=== PATIENT | male | born 1970 | race Two or more races ===

== ENCOUNTER 2024-12-04 10:55 | Emergency (ER) | payer MEDICAID, SELFPAY ==
--- NOTE | 2024-12-04 11:28 | PD.EDCHEST ---
ED Chest Pain RME/HPI General Chief Complaint: Chest Pain Stated Complaint: BACK AND CHEST PAIN Time Seen by Provider: 12/04/24 11:00 Source: patient and family Arrival date/time: 12/04/24 10:55 Mode of arrival: ambulatory Limitations: no limitations RME / HPI RME / HPI narrative: Dr. Grimes? Main ED Evaluation: 54-year-old male patient with a history of congestive heart failure, diabetes mellitus, hypertension, and a pacemaker, presenting to the emergency department with complaints of chest pain accompanied by back pain. The patient reports that his symptoms began last night when he developed chest pain and checked his blood sugar, which was reportedly 500 mg/dL. He took nitroglycerin, which provided partial relief of the chest pain but did not fully resolve it. He went to bed, but upon waking at 7:30 AM today, he experienced constant, persistent chest pain. The pain was associated with radiation down his right arm, which lasted for about five minutes before resolving. Since this morning, he has noted increasing shortness of breath, nausea, and vomiting. He has not eaten today but has consumed coffee. He also reports that he has run out of Carvedilol. His social history includes a prior qte-spoa-kig-day tobacco use history, though he no longer smokes. He occasionally smokes marijuana but denies any illicit drug use. He also reports a family history of cardiac disorders. 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 PCP: [facility] Related Data Home Medications ?Medication ?Instructions ?Recorded ?Confirmed aspirin 81 mg tablet,delayed 81 mg PO QDAY 06/21/20 04/16/24 release duloxetine 60 mg capsule,delayed 60 mg PO QDAY 06/21/20 01/22/24 release insulin glargine 100 unit/mL (3 80 unit subcut 1XD 06/21/20 01/22/24 mL) subcutaneous pen (Basaglar KwikPen U-100 Insulin) lovastatin 40 mg tablet 40 mg PO QPM 06/21/20 04/16/24 empagliflozin 10 mg tablet 10 mg PO QDAY 04/05/21 01/22/24 (Jardiance) carvedilol 3.125 mg tablet 3.125 mg PO BID 09/04/22 04/16/24 insulin lispro 100 unit/mL See Rx Instructions .Route .COMPLEX 09/04/22 01/22/24 subcutaneous pen (Humalog KwikPen (U-100) Insulin) loratadine 10 mg tablet 10 mg PO QDAY 09/04/22 01/22/24 albuterol sulfate 90 mcg/actuation 90 mcg inhalation PRN PRN Adequate 01/22/24 01/22/24 aerosol inhaler Ventilation digoxin 125 mcg (0.125 mg) tablet 125 mcg PO 1XD 01/22/24 04/16/24 fluticasone furoate 200 200 mcg inhalation PRN PRN 01/22/24 01/22/24 mcg/actuation blister powder for Adequate Ventilation inhalation (Arnuity Ellipta) glimepiride 1 mg tablet 1 mg PO USEASDIRECTD 01/22/24 01/22/24 ibuprofen 600 mg tablet 600 mg PO Q6HR 01/22/24 01/22/24 metformin 1,000 mg tablet 1,000 mg PO 2XD 01/22/24 01/22/24 montelukast 10 mg tablet 10 mg PO QPM 01/22/24 01/22/24 nitroglycerin 0.4 mg sublingual 0.4 mg buccal [id number] PRN Chest 01/22/24 01/22/24 tablet Pain tramadol 50 mg tablet 100 mg PO 4XD 01/22/24 01/22/24 Previous Rx's ?Medication ?Instructions ?Recorded ascorbic acid (vitamin C) 250 mg 500 mg (2 x 250 mg) PO BID #30 tabs 01/25/24 tablet (Vitamin C) multivitamin with folic acid 400 1 tab PO QDAY #30 tabs 01/25/24 mcg tablet (Tab-A-Kitty) zinc sulfate 50 mg zinc (220 mg) 220 mg (4.4 x 50 mg zinc (220 mg)) 01/25/24 capsule PO QDAY #30 caps carvedilol 3.125 mg tablet 3.125 mg PO BID #60 tabs 12/04/24 Allergies Allergy/AdvReac Type Severity Reaction Status Date / Time cephalexin Allergy Severe Agitated Verified 12/04/24 10:57 promethazine Allergy Severe Agitated Verified 12/04/24 10:57 Review of Systems Review of Systems Systems Reviewed: All systems reviewed, normal except as documented Past Medical History Past Medical History NEUROLOGIC: Positive Neurological Disorders and Peripheral Neuropathy; Negative Seizures CARDIAC: Positive Cardiac Disorders, Atherosclerotic Heart Disease, Hypercholesterolemia, Congestive Heart Failure and Hypertension RESPIRATORY: Positive Asthma; Negative Chronic Obstructive Pulmonary Disease (COPD) GASTROINTESTINAL: Negative Gastrointestinal Disorders GENITOURINARY: Negative Genitourinary Disorders or Renal Disease MUSCULOSKELETAL: Negative Musculoskeletal Disorders ENDOCRINE: Positive Endocrine Disorders, Diabetes Mellitus Type 1 and Diabetes Mellitus Type 2 HEMATOLOGIC: Negative Blood Disorders or Sickle Cell Disease OTHER HISTORY: Positive Hospitalization, Falls and Chicken Pox; Negative Autoimmune Disease, Down Syndrome, Developmental Delay, Blood Transfusions, Blood Transfusion Reaction, Anesthesia Reactions, Measles, Mumps or Cancer Family History FAMILY HISTORY: Positive Family Cancer; Negative Family Neurologic Problems, Family Respiratory Disorders, Family Cardiac Disorders, Family Gastrointestinal Problems or Family Surgery Surgical History SURGICAL: Positive Pacemaker Social History SMOKING STATUS: Former smoker SECOND HAND EXPOSURE: Yes SUBSTANCE USE: does not use ED Exam General Limitations: Present no limitations General appearance: Present alert and in no apparent distress Head Head exam: Present atraumatic Eye Eye exam: Present normal appearance, PERRL and EOMI ENT ENT exam: Present normal exam, normal oropharynx and mucous membranes moist Neck Neck exam: Present normal inspection, full ROM and trachea midline Chest Chest inspection: Present normal inspection and symmetric chest wall rise Respiratory Respiratory exam: Present normal lung sounds bilaterally Cardiovascular Cardiovascular exam: Present regular rate, normal rhythm and normal heart sounds Abdominal Exam Abdominal exam: Present soft and normal bowel sounds Extremities Exam Extremities exam: Present normal inspection and full ROM Back Exam Back exam: Present normal inspection and full ROM Neurological Exam Neurological exam: Present alert, oriented X3 and CN II-XII intact Psychiatric Psychiatric exam: Present normal affect and normal mood Skin Skin exam: Present warm, dry, intact and normal color Course Course Course Narrative: CXR is ordered for determining etiology of chest pain. 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 Care 12/04/24 11:54 Completed Continuous Pulse Oximetry STAT Care 12/04/24 11:54 Completed EKG (ED ONLY) *Do not use* NOW Care 12/04/24 11:54 Completed Insert IV NOW Care 12/04/24 11:54 Completed NPO STAT Care 12/04/24 11:54 Completed Strict Intake and Output Routine Care 12/04/24 11:54 Ordered EKG (ED Only) Stat Exams 12/04/24 11:54 Draft XR chest 2V Stat Exams 12/04/24 11:54 Completed B-Type Natriuretic Peptide Stat Lab 12/04/24 12:04 Completed CBC Stat Lab 12/04/24 12:04 Completed Comprehensive Metabolic Panel Stat Lab 12/04/24 12:04 Completed Lactate (Lactic Acid) Stat Lab 12/04/24 12:04 Completed Magnesium Stat Lab 12/04/24 12:04 Completed Partial Thromboplastin Time Stat Lab 12/04/24 12:04 Completed Phosphorous Stat Lab 12/04/24 12:04 Completed Prothrombin Time with INR Stat Lab 12/04/24 12:04 Completed Troponin I Stat Lab 12/04/24 12:04 Completed Troponin I Stat Lab 12/04/24 15:20 Completed Vital Signs Vital signs: Vital Signs Temperature 98.2 F 12/04/24 11:48 Pulse Rate 102 H 12/04/24 11:48 Respiratory Rate 18 12/04/24 11:48 Blood Pressure 145/88 H 12/04/24 11:48 Pulse Oximetry (%) 96 12/04/24 11:48 Oxygen Delivery Method Room Air 12/04/24 11:48 Procedures -ED EKG Interpretation #1: Date of EK12/04/24 Time of EK:57 Rate: 101 Interpretation: Interpreted by me Additional EKG comment: 100% paced rhythm, rate 101, no significant changes Chest Pain MDM Narrative MDM Narrative:: Both troponins are negative. Scribe Attestation: Leonid Dc am scribing for and in the presence of Dr. Grimes. Provider Notation: Although this document has been carefully reviewed, there may still be some phonetic and other typographical errors. These errors are purely grammatical due to imperfections in the software program and should not be construed in any way to compromise the substance of the patient's medical care during this visit. Patient data External records reviewed:: [facility] previous records Clinical information provided by:: patient Social determinants that could affect healthcare access:: none Patient has the following chronic illnesses:: see PMH How is presenting disease/condition affected by chronic disease/condition?: uneffected by Evaluation data The following diagnostics were reviewed and interpreted by me:: lab results, radiology exam(s) and EKG tracing(s) Lab and/or radiology exams considered but not ordered:: na Interpretation Summary: Procedure(s): XR chest 2V Accession Number(s): [id number] cc: Rod Grimes MD; Chicho Ulloa MD~ Exam: Chest PA, lateral 2 views Technique: Chest upright PA lateral 2 views Date and time of exam: 12/04/2024, 12:08 PM INDICATION: Chest pain COMPARISON: 09/15/2022 Findings: Normal heart size. No mediastinal adenopathy. No acute fracture No pulmonary edema or pneumonia. Stable left-sided dual lead pacing device Impression: No active disease. Dictated By: Chicho Ulloa MD Medications / Prescriptions Medications or Prescriptions considered but not ordered:: na Medication administrations:: as above, if any Consultations Consultation(s) initiated? (list below): No Diagnosis Chest Pain Differential Diagnosis: stable angina, atypical chest pain, costochondritis and chest pain Most likely diagnosis given after review of the tests above:: Dyspnea, Chest Pain Admission Indicated Admission indicated?: not indicated Admission Request Was there a request for admission?: No Disposition Plan Disposition Plan: Discharge Discharge Attestation Discharge Attestation: The patient and all family members were given an opportunity to ask questions and understood the discharge instructions. Discharge instructions specifically effects, indications for sooner follow up or return to the emergency department, and the expected course of current diagnosis. Patient condition: Stable Discharge Plan Plan Patient Disposition: HOME (Self Care) Patient condition on transfer: Stable Prescriptions/Referrals Prescriptions/Med Rec: New carvedilol 3.125 mg tablet 3.125 mg PO BID Qty: 60 0RF Rx Instructions: must administer with a meal/food No Action lovastatin 40 mg Tablet 40 mg PO QPM aspirin 81 mg Tablet,Delayed Release (Dr/Ec) 81 mg PO QDAY duloxetine 60 mg Capsule,Delayed Release(Dr/Ec) 60 mg PO QDAY insulin glargine [Basaglar KwikPen U-100 Insulin] 100 unit/mL (3 mL) Insulin Pen 80 unit SUBCUT 1XD Jardiance 10 mg tablet 10 mg PO QDAY Patient Comments: TAKE 1 TABLET BY MOUTH EVERY DAY FOR DIABETES (DISCONTINUE FARXIGA) carvedilol 3.125 mg tablet 3.125 mg PO BID Patient Comments: TAKE 1 TABLET BY MOUTH TWICE A DAY insulin lispro [Humalog KwikPen Insulin] 100 unit/mL insulin pen See Rx Instructions .ROUTE .COMPLEX Patient Comments: INJECT 1-5 UNITS SUBCUTANEOUSLY 3 TIMES A DAY BEFORE MEALS FOR HIGH BLOOD SUGARS (MAX 15 UNITS/DAY) Rx Instructions: MAX 15 UNITS PER DAY loratadine 10 mg tablet 10 mg PO QDAY Patient Comments: TAKE 1 TABLET BY MOUTH EVERY DAY FOR ALLERGIES glimepiride 1 mg tablet 1 mg PO USEASDIRECTD Patient Comments: TAKE 1 TABLET BY MOUTH EVERY DAY WITH LUNCH tramadol 50 mg tablet 100 mg PO 4XD Patient Comments: TAKE 2 TABLETS BY MOUTH 4 TIMES A DAY FOR 7 DAYS metformin 1,000 mg tablet 1,000 mg PO 2XD Patient Comments: TAKE 1 TABLET BY MOUTH TWICE A DAY FOR DIABETES ibuprofen 600 mg tablet 600 mg PO Q6HR Patient Comments: TAKE 1 TABLET BY MOUTH EVERY 6 TO 8 HOURS NEEDED FOR PAIN digoxin 125 mcg (0.125 mg) tablet 125 mcg PO 1XD Patient Comments: TAKE 1 TABLET BY MOUTH EVERY DAY montelukast 10 mg tablet 10 mg PO QPM Patient Comments: TAKE 1 TABLET BY MOUTH EVERY DAY AT NIGHT nitroglycerin 0.4 mg tablet, sublingual 0.4 mg BUCCAL [id number] PRN (Reason: Chest Pain) Arnuity Ellipta 200 mcg/actuation blister with device 200 mcg INHALATION PRN PRN (Reason: Adequate Ventilation) albuterol sulfate 90 mcg/actuation HFA aerosol inhaler 90 mcg INHALATION PRN PRN (Reason: Adequate Ventilation) Patient Comments: INHALE 2 PUFFS BY MOUTH EVERY 4-6 HOURS NEEDED ASTHMA ascorbic acid (vitamin C) [Vitamin C] 250 mg Tablet 500 mg PO BID Qty: 30 0RF multivitamin with folic acid [Tab-A-Kitty] 400 mcg Tablet 1 tab PO QDAY Qty: 30 0RF zinc sulfate 50 mg zinc (220 mg) Capsule 220 mg PO QDAY Qty: 30 0RF Referrals: Arlette Perkins PA-C [Primary Care Provider] - In 1 week Problem List Clinical Impression: Dyspnea, Chest pain Patient/Caregiver Discharge Instructions Education Materials: ED Shortness of Breath (Dyspnea) Additional Instructions: Please follow-up with your your actuarial consultant this upcoming Friday. Return to the Emergency Department as needed. Print Language: Israeli
[2024-12-04 11:48] VITALS: BP 145/88; PULSE 102; RESP 18; TEMP 36.8; O2SAT 96; BMI 30.7
--- NOTE | 2024-12-04 11:54 | XR_ITS ---
Exam: Chest PA, lateral 2 views Technique: Chest upright PA lateral 2 views Date and time of exam: 12/04/2024, 12:08 PM INDICATION: Chest pain COMPARISON: 09/15/2022 Findings: Normal heart size. No mediastinal adenopathy. No acute fracture No pulmonary edema or pneumonia. Stable left-sided dual lead pacing device Impression: No active disease.
--- NOTE | 2024-12-04 11:54 | EKG_ITS ---
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
[2024-12-04 12:16] LABS: Lactate (Lactic Acid) 1.6 mMol/L (0.4-2.0)
[2024-12-04 12:24] LABS: Basophils % (Auto) 0 % (0-2.5); Eosinophils # (Auto) 0.1 Thou/mm3 (0.0-0.5); Eosinophils % (Auto) 1 % (0-10); Hematocrit 37.7 % (41.0-53.0); Hemoglobin 13.4 g/dL (13.5-16.0); Immature Granulocytes % (Auto) 1 % (0-0); Immature Granulocytes Auto 0.07 Thou/mm3 (0.00-0.00); Lymphocytes # (Auto) 1.9 Thou/mm3 (1.0-4.8); Lymphocytes % (Auto) 21 % (10-50); Mean Corpuscular HGB Conc 35.5 g/dl (31.0-37.0); Mean Corpuscular Hemoglobin 28.7 pg (25.0-35.0); Mean Corpuscular Volume 81 fL (80-100); Monocytes # (Auto) 0.6 Thou/mm3 (0.0-0.8); Monocytes % (Auto) 7 % (0-12); Neutrophils # (Auto) 6.3 Thou/mm3 (1.8-7.7); Neutrophils % (Auto) 70 % (37-80); Nucleated Red Blood Cell % 0 /100 WBC (0); Platelet Count 138 Thou/mm3 (140-440); RDW Standard Deviation 39.2 fL (35.1-43.9); Red Blood Count 4.67 Miln/mm3 (4.50-5.90)
[2024-12-04 12:38] LABS: Partial Thromboplastin Time 25.7 Seconds (22.0-36.0); Prothrombin Time 10.6 Seconds (9.0-12.2)
[2024-12-04 12:40] LABS: B-Type Natriuretic Peptide 24 pg/mL (0-100)
[2024-12-04 12:43] LABS: Alanine Aminotransferase 23 U/L (10-49); Albumin, Serum 4.3 gm/dL (3.5-5.0); Albumin/Globulin Ratio 1.8 (1.2-2.2); Alkaline Phosphatase 117 U/L (46-116); Anion Gap 10 (7-16); Aspartate Amino Transferase 18 U/L (0-34); BUN/Creatinine Ratio 20 Ratio (12-20); Bilirubin,Total 0.5 mg/dL (0.3-1.2); Blood Urea Nitrogen 20 mg/dL (9-23); Calcium 9.1 mg/dL (8.3-10.6); Calcium (Corrected) 9.1 mg/dL (8.5-10.1); Carbon Dioxide 27.5 mMol/L (20.0-31.0); Chloride 100 mMol/L (98-107); Estimated Creatinine Clearance 88.9 mL/min (>60); Globulin 2.4 gm/dL (2.3-3.5); Glucose 204 mg/dL (74-106); Magnesium 2.1 mg/dL (1.6-2.6); Osmolality,Calculated 282 (275-295); Phosphorous 3.5 mg/dL (2.4-5.1); Potassium 4.6 mMol/L (3.4-5.1); Sodium 137 mMol/L (136-145); Total Protein 6.7 gm/dL (5.7-8.2); Troponin I 0.042 ng/mL (0.0-0.045); eGFR > 60 See Note
[2024-12-04 16:20] VITALS: BP 129/78; PULSE 71; RESP 18; TEMP 36.7; O2SAT 98
== END 2024-12-04 16:20 | disposition home or self-care (01) ==
PROVIDERS: Emergency Provider Family Medicine; PCP Physician Assistant
DX: R06.00 Dyspnea, unspecified (principal); R07.9 Chest pain, unspecified; E11.9 Type 2 diabetes mellitus without complications; I11.0 Hypertensive heart disease with heart failure; I50.9 Heart failure, unspecified; Z95.0 Presence of cardiac pacemaker; M54.9 Dorsalgia, unspecified
CPT/HCPCS: 36415; 71046; 80053; 81001; 83605; 83735; 83880; 84100; 84484; 85025; 85610; 85730; 93005; 99283

== ENCOUNTER 2025-03-08 19:43 | Observation (INO) | payer MEDICAID, SELFPAY ==
--- NOTE | 2025-03-08 19:44 | EKG_ITS ---
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
[2025-03-08 20:20] VITALS: BP 102/67; PULSE 97; RESP 16; TEMP 36.7; O2SAT 99
[2025-03-08 20:21] VITALS: BMI 30.4
--- NOTE | 2025-03-08 20:54 | XR_ITS ---
Examination: AP chest single view TECHNIQUE: A before upright chest single view Date and time: March 08, 2025 at 2110 hours Comparison December 04, 2024 INDICATIONS: Chest pain shortness of breath today FINDINGS: Normal heart size No pneumonia or pulmonary edema Cardiac leads satisfactory position IMPRESSION: No active disease
--- NOTE | 2025-03-08 21:00 | PD.EDADULT ---
ED General RME/HPI General Chief complaint: Chest Pain Stated complaint: HIGH BP,SOB Time Seen by Provider: 03/08/25 20:13 Source: patient Arrival date/time: 03/08/25 19:43 Limitations: no limitations RME / HPI RME / HPI narrative: 54-year-old male with a history of hypertension, CHF, and diabetes here today with a 1 day history of chest pain. He states that started this morning. He endorses shortness of breath and has exertional symptoms. Patient has a history of a ventricular pacer. He denies any fevers or chills. He has no lower leg edema. He has no abdominal pain, nausea, vomiting. Related Data Home Medications ?Medication ?Instructions ?Recorded ?Confirmed aspirin 81 mg tablet,delayed 81 mg PO QDAY 06/21/20 04/16/24 release duloxetine 60 mg capsule,delayed 60 mg PO QDAY 06/21/20 01/22/24 release insulin glargine 100 unit/mL (3 80 unit subcut 1XD 06/21/20 01/22/24 mL) subcutaneous pen (Basaglar KwikPen U-100 Insulin) lovastatin 40 mg tablet 40 mg PO QPM 06/21/20 04/16/24 empagliflozin 10 mg tablet 10 mg PO QDAY 04/05/21 01/22/24 (Jardiance) carvedilol 3.125 mg tablet 3.125 mg PO BID 09/04/22 04/16/24 insulin lispro 100 unit/mL See Rx Instructions .Route .COMPLEX 09/04/22 01/22/24 subcutaneous pen (Humalog KwikPen (U-100) Insulin) loratadine 10 mg tablet 10 mg PO QDAY 09/04/22 01/22/24 albuterol sulfate 90 mcg/actuation 90 mcg inhalation PRN PRN Adequate 01/22/24 01/22/24 aerosol inhaler Ventilation digoxin 125 mcg (0.125 mg) tablet 125 mcg PO 1XD 01/22/24 04/16/24 fluticasone furoate 200 200 mcg inhalation PRN PRN 01/22/24 01/22/24 mcg/actuation blister powder for Adequate Ventilation inhalation (Arnuity Ellipta) glimepiride 1 mg tablet 1 mg PO USEASDIRECTD 01/22/24 01/22/24 ibuprofen 600 mg tablet 600 mg PO Q6HR 01/22/24 01/22/24 metformin 1,000 mg tablet 1,000 mg PO 2XD 01/22/24 01/22/24 montelukast 10 mg tablet 10 mg PO QPM 01/22/24 01/22/24 nitroglycerin 0.4 mg sublingual 0.4 mg buccal [id number] PRN Chest 01/22/24 01/22/24 tablet Pain tramadol 50 mg tablet 100 mg PO 4XD 01/22/24 01/22/24 Previous Rx's ?Medication ?Instructions ?Recorded ascorbic acid (vitamin C) 250 mg 500 mg (2 x 250 mg) PO BID #30 tabs 01/25/24 tablet (Vitamin C) multivitamin with folic acid 400 1 tab PO QDAY #30 tabs 01/25/24 mcg tablet (Tab-A-Kitty) zinc sulfate 50 mg zinc (220 mg) 220 mg (4.4 x 50 mg zinc (220 mg)) 01/25/24 capsule PO QDAY #30 caps carvedilol 3.125 mg tablet 3.125 mg PO BID #60 tabs 12/04/24 Allergies Allergy/AdvReac Type Severity Reaction Status Date / Time cephalexin Allergy Severe Agitated Verified 12/04/24 10:57 promethazine Allergy Severe Agitated Verified 12/04/24 10:57 Review of Systems Review of Systems Systems Reviewed: All systems reviewed, normal except as documented ED Exam General Limitations: Present no limitations General appearance: Present alert and in no apparent distress Head Head exam: Present atraumatic Eye Eye exam: Present normal appearance, PERRL and EOMI ENT ENT exam: Present normal exam, normal oropharynx and mucous membranes moist Neck Neck exam: Present normal inspection, full ROM and trachea midline Chest Chest inspection: Present normal inspection and symmetric chest wall rise Respiratory Respiratory exam: Present normal lung sounds bilaterally Cardiovascular Cardiovascular exam: Present regular rate, normal rhythm and normal heart sounds Abdominal Exam Abdominal exam: Present soft and normal bowel sounds Extremities Exam Extremities exam: Present normal inspection and full ROM Back Exam Back exam: Present normal inspection and full ROM Neurological Exam Neurological exam: Present alert, oriented X3 and CN II-XII intact Psychiatric Psychiatric exam: Present normal affect and normal mood Skin Skin exam: Present warm, dry, intact and normal color Course Quality Measures none Orders Category Date Time Status Bedside COVID-19 Antigen Test NOW Care 03/08/25 22:45 Active COVID-19 Screening Questionnaire NOW Care 03/08/25 22:31 Active Decision to Admit X1 Care 03/08/25 22:31 Completed EKG (ED ONLY) *Do not use* NOW Care 03/08/25 19:44 Completed IV [Insert IV] STAT Care 03/08/25 20:24 Active EKG (ED Only) Stat Exams 03/08/25 19:44 Draft XR chest 1V Stat Exams 03/08/25 20:54 Completed BNP [B-Type Natriuretic Peptide] Stat Lab 03/08/25 20:30 Completed CBC Stat Lab 03/08/25 20:30 Completed CMP [Comprehensive Metabolic Panel] Stat Lab 03/08/25 20:30 Completed D-Dimer Stat Lab 03/08/25 20:30 Completed Drug Screen,Urine Stat Lab 03/08/25 22:20 Completed Magnesium Stat Lab 03/08/25 20:30 Completed Troponin I Stat Lab 03/08/25 20:30 Completed Troponin I Stat Lab 03/08/25 22:18 Completed UA [Urinalysis] Stat Lab 03/08/25 22:20 Completed Aspirin Med 03/08/25 22:00 Discontinued 325 mg PO X1 ONE Morphine Inj Med 03/08/25 21:51 Discontinued 4 mg IVP X1 ONE Nitroglycerin [Nitrostat 1/150] Med 03/08/25 21:59 Active 0.4 mg SL Q5MIN PRN Ondansetron Inj [Zofran Inj] Med 03/08/25 21:51 Discontinued 4 mg IVP X1 ONE Vital Signs Vital signs: Vital Signs Temperature 98.1 F 03/08/25 20:20 Pulse Rate 97 03/08/25 20:20 Respiratory Rate 16 03/08/25 20:20 Blood Pressure 102/67 03/08/25 20:20 Pulse Oximetry (%) 99 03/08/25 20:20 Oxygen Delivery Method Room Air 03/08/25 20:20 Discharge Plan Plan Patient Disposition: Admit Acute Care w/in Hospital Patient condition on transfer: Stable Prescriptions/Referrals Prescriptions/Med Rec: No Action lovastatin 40 mg Tablet 40 mg PO QPM aspirin 81 mg Tablet,Delayed Release (Dr/Ec) 81 mg PO QDAY duloxetine 60 mg Capsule,Delayed Release(Dr/Ec) 60 mg PO QDAY insulin glargine [Sammyaglbarbara KwikPen U-100 Insulin] 100 unit/mL (3 mL) Insulin Pen 80 unit SUBCUT 1XD Jardiance 10 mg tablet 10 mg PO QDAY Patient Comments: TAKE 1 TABLET BY MOUTH EVERY DAY FOR DIABETES (DISCONTINUE ) carvedilol 3.125 mg tablet 3.125 mg PO BID Patient Comments: TAKE 1 TABLET BY MOUTH TWICE A DAY insulin lispro [Humalog KwikPen Insulin] 100 unit/mL insulin pen See Rx Instructions .ROUTE .COMPLEX Patient Comments: INJECT 1-5 UNITS SUBCUTANEOUSLY 3 TIMES A DAY BEFORE MEALS FOR HIGH BLOOD SUGARS (MAX 15 UNITS/DAY) Rx Instructions: MAX 15 UNITS PER DAY loratadine 10 mg tablet 10 mg PO QDAY Patient Comments: TAKE 1 TABLET BY MOUTH EVERY DAY FOR ALLERGIES carvedilol 3.125 mg tablet 3.125 mg PO BID Qty: 60 0RF Rx Instructions: must administer with a meal/food glimepiride 1 mg tablet 1 mg PO USEASDIRECTD Patient Comments: TAKE 1 TABLET BY MOUTH EVERY DAY WITH LUNCH tramadol 50 mg tablet 100 mg PO 4XD Patient Comments: TAKE 2 TABLETS BY MOUTH 4 TIMES A DAY FOR 7 DAYS metformin 1,000 mg tablet 1,000 mg PO 2XD Patient Comments: TAKE 1 TABLET BY MOUTH TWICE A DAY FOR DIABETES ibuprofen 600 mg tablet 600 mg PO Q6HR Patient Comments: TAKE 1 TABLET BY MOUTH EVERY 6 TO 8 HOURS NEEDED FOR PAIN digoxin 125 mcg (0.125 mg) tablet 125 mcg PO 1XD Patient Comments: TAKE 1 TABLET BY MOUTH EVERY DAY montelukast 10 mg tablet 10 mg PO QPM Patient Comments: TAKE 1 TABLET BY MOUTH EVERY DAY AT NIGHT nitroglycerin 0.4 mg tablet, sublingual 0.4 mg BUCCAL [id number] PRN (Reason: Chest Pain) Arnuity Ellipta 200 mcg/actuation blister with device 200 mcg INHALATION PRN PRN (Reason: Adequate Ventilation) albuterol sulfate 90 mcg/actuation HFA aerosol inhaler 90 mcg INHALATION PRN PRN (Reason: Adequate Ventilation) Patient Comments: INHALE 2 PUFFS BY MOUTH EVERY 4-6 HOURS NEEDED ASTHMA ascorbic acid (vitamin C) [Vitamin C] 250 mg Tablet 500 mg PO BID Qty: 30 0RF multivitamin with folic acid [Tab-A-Kitty] 400 mcg Tablet 1 tab PO QDAY Qty: 30 0RF zinc sulfate 50 mg zinc (220 mg) Capsule 220 mg PO QDAY Qty: 30 0RF Referrals: No Primary/Family,Physician [Primary Care Provider] - In 1 week Problem List Clinical Impression: Chest pain, Elevated troponin Patient/Caregiver Discharge Instructions Print Language: [place] Stand Alone Forms: Ita Award Info., Patient Portal Info Letter MDM Narrative [facility] hospital course: Patient is a 54-year-old male with a history of hypertension diabetes, and some sort of cardiomyopathy that he is unable to describe. He does have a pacer installed and he is not sure why he has this. He denies any alcohol abuse or drug use. He arrives to the ER with normal vital signs. Workup reveals a ventricular paced rhythm. CBC is essentially unremarkable. He has a slight elevated troponin at 0.054. Patient was given a dose of morphine, aspirin, and Zofran here. Case discussed with send ER physician. Cardiology was consulted. At approximately 10 PM, Dr. Abrams was consulted. Patient's presentation and diagnostic workup was discussed. Cardiology provides no further recommendations other than serial troponins. Internal medicine was contacted, discussed possible admission. They will review the patient's chart and call me back. Patient was reexamined, he reported significant proved but after his therapies here that included morphine, nitroglycerin, and aspirin. Medicine will admit the patient to observation. Clinical Information Provided by patient Medical Records Reviewed [facility] Meds/Rx Considered, not Ordered Describe details: n/a Labs/Rad/Tests considered, not Ordered Describe details: n/a Chronic Illness/Social Conditions which may negatively complicate care or outcome(s)-explain: CHF/CAD/Cardiac illness Medication Administration(s) Medication Administration History Nitroglycerin (Nitroglycerin 0.4 Mg Subl Btl #25) 0.4 mg SL Q5MIN PRN PRN Reason: CHEST PAIN Last Admin: 03/08/25 22:14 Dose: 0.4 mg Documented By: KIP Discontinued Medications Aspirin (Aspirin 325 Mg Tablet) 325 mg PO X1 ONE Stop: 03/08/25 22:01 Last Admin: 03/08/25 22:13 Dose: 325 mg Documented By: KIP Morphine Sulfate (Morphine Sulf Inj 10 Mg/Ml Vial) 4 mg IVP X1 ONE Stop: 03/08/25 21:52 Last Admin: 03/08/25 22:13 Dose: 4 mg Documented By: EE Ondansetron HCl (Ondansetron Inj 2 Mg/Ml Inj 2 Ml) 4 mg IVP X1 ONE; Protocol Stop: 03/08/25 21:52 Last Admin: 03/08/25 22:13 Dose: 4 mg Documented By: KIP Diagnosis Differential diagnosis: Chest pain, elevated troponin Dispositon Disposition: Admit
[2025-03-08 21:22] LABS: Basophils # (Auto) 0.1 Thou/mm3 (0.0-0.2); Basophils % (Auto) 1 % (0-2.5); Eosinophils # (Auto) 0.1 Thou/mm3 (0.0-0.5); Eosinophils % (Auto) 1 % (0-10); Hematocrit 39.2 % (41.0-53.0); Hemoglobin 14.5 g/dL (13.5-16.0); Immature Granulocytes % (Auto) 1 % (0-0); Immature Granulocytes Auto 0.05 Thou/mm3 (0.00-0.00); Lymphocytes # (Auto) 2.6 Thou/mm3 (1.0-4.8); Lymphocytes % (Auto) 24 % (10-50); Mean Corpuscular Hemoglobin 28.9 pg (25.0-35.0); Mean Corpuscular Volume 78 fL (80-100); Monocytes # (Auto) 0.9 Thou/mm3 (0.0-0.8); Monocytes % (Auto) 8 % (0-12); Neutrophils # (Auto) 7.1 Thou/mm3 (1.8-7.7); Neutrophils % (Auto) 65 % (37-80); Nucleated Red Blood Cell % 0 /100 WBC (0); Platelet Count 201 Thou/mm3 (140-440); RDW Standard Deviation 35.9 fL (35.1-43.9); Red Blood Count 5.01 Miln/mm3 (4.50-5.90); White Blood Count 10.8 Thou/mm3 (3.8-10.6)
[2025-03-08 21:40] LABS: B-Type Natriuretic Peptide 30 pg/mL (0-100)
[2025-03-08 21:42] LABS: Alanine Aminotransferase 23 U/L (10-49); Albumin, Serum 4.7 gm/dL (3.5-5.0); Alkaline Phosphatase 124 U/L (46-116); Anion Gap 12 (7-16); Aspartate Amino Transferase 19 U/L (0-34); BUN/Creatinine Ratio 18 Ratio (12-20); Bilirubin,Total 0.4 mg/dL (0.3-1.2); Blood Urea Nitrogen 23 mg/dL (9-23); Calcium 10.3 mg/dL (8.3-10.6); Calcium (Corrected) 10.3 mg/dL (8.5-10.1); Carbon Dioxide 27.1 mMol/L (20.0-31.0); Chloride 100 mMol/L (98-107); Creatinine (Component) 1.3 mg/dL (0.6-1.3); Estimated Creatinine Clearance 68.2 mL/min (>60); Globulin 2.3 gm/dL (2.3-3.5); Glucose 124 mg/dL (74-106); Osmolality,Calculated 282 (275-295); Potassium 3.6 mMol/L (3.4-5.1); Sodium 139 mMol/L (136-145); eGFR > 60 See Note
[2025-03-08 21:43] LABS: D-Dimer 397 ng/mL (<600); Troponin I 0.054 ng/mL (0.0-0.045)
[2025-03-08] MEDS: Aspirin 325 MG TABLET PO (22:13)
[2025-03-08] MEDS: MORPHINE SULF INJ 10 MG/ML VIAL 4 MG IVP (22:13)
[2025-03-08] MEDS: ONDANSETRON INJ 2 MG/ML INJ 2 ML 4 MG IVP (22:13)
[2025-03-08 22:14] VITALS: BP 143/81; PULSE 84
[2025-03-08] MEDS: NITROGLYCERIN 0.4 MG SUBL BTL #25 SL (22:14)
[2025-03-08 22:15] VITALS: BP 143/81; PULSE 96; RESP 19; TEMP 37.2; O2SAT 100
[2025-03-08 22:23] LABS: Collection Type, Urine Clean Catch; Squamous Epithelial Cell,Urine 0 /hpf (0-5)
[2025-03-08 22:31] LABS: Bilirubin,Urine Negative (Negative); Blood,Urine Negative (Negative); Clarity,Urine Clear (Clear/Hazy); Color,Urine Yellow (Lt Yel-Yel); Glucose, Urine 4+ (Negative); Hyaline Casts,Urine < 1 /hpf (0-1); Ketones,Urine Negative (Negative); Leukocyte Esterase,Urine Negative (Negative); Nitrite,Urine Negative (Negative); Protein,Urine 1+ (Neg - Trace); RBC,Urine 4 /hpf (0-3); Urobilinogen,Urine Negative mg/dL (0.0-1.0); WBC,Urine 1 /hpf (0-5)
[2025-03-08 22:45] LABS: Amphetamine/Methamp Scrn,U Negative (Negative); Barbiturate Screen,Urine Negative (Negative); Benzodiazepines Screen,Urine Negative (Negative); Benzoylecgonine Screen, Ur Negative (Negative); Fentanyl Screen,Urine Negative (Negative); Opiate Screen,Urine Negative (Negative); THC Screen,Urine Positive (Negative)
[2025-03-08 22:52] LABS: Troponin I 0.052 ng/mL (0.0-0.045)
--- NOTE | 2025-03-08 23:53 | ESHP_ITS ---
<Statement entered by Annie Ryan MD - 03/09/25 00:20> I Annie Ryan MD reviewed the note and agree with the resident's assessment & plan with exceptions as below. I have personally reviewed labs, imaging, home meds/prior records, examined the patient, formulated and discussed management plan with the IM team. A 54-year-old M with Hx of DM, HFrEF EF 25% s/p AICD presented with epigastric and right upper quadrant pain along with recurrent nonbilious nonbloody emesis. Patient noted to have elevated creatinine, troponin mildly elevated though plan to with normal BNP and EKG revealing 100% paced rhythm. Patient's symptoms likely related to gastroenteritis versus hepatobiliary in nature. Elevated troponin is likely related to type II SD in the setting of recent stress test being unremarkable and flat troponin elevation in the setting of VISH and recurrent vomiting. Patient is clinically euvolemic will hold on Lasix home dose and obtain hepatobiliary ultrasound. Administer Zofran as needed for nausea. Will avoid IV fluid resuscitation as patient has very poor EF and clinically appears euvolemic and labs are not consistent with severe dehydration. Otherwise resume aspirin Coreg digoxin and Jardiance home dose. Will start on ARB's once renal function is improved to baseline. Documentation for date of: 03/08/25 HPI History of Present Illness Chief complaint: Chest pain History of present illness: 54-year-old male with past medical history of hypertension, diabetes, heart failure with reduced ejection fraction [25-30%] status post AICD presented to the ED with chest pain. Patient states that he suddenly woke up this morning with chest pain nonradiating described as a burning sensation denies pain to be pressure or sharp-like in character was rated 8 out of 10, pain has been constant throughout the whole day. Pain is worse when drinking fluids as well as with inspiration. Patient also endorses some nausea and vomiting of nonbloody emesis and has had 5-6 episodes today. When asked about the patient's heart failure he states it was due to trauma with the of a family member and then later was evaluated and found to have congestive heart failure. In the ED patient received morphine, Zofran, nitroglycerin which he states relieved the pain. 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 At this time patient denies fever, chills, shortness of breath, PND, orthopnea, recent travel, sick contacts. 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 Exam Vital Signs Temp Pulse Resp BP Pulse Ox O2 Del Method 98.9 F 96 19 143/81 H 100 Room Air 03/08/25 22:15 03/08/25 22:15 03/08/25 22:15 03/08/25 22:15 03/08/25 22:15 03/08/25 22:15 Narrative Exam Physical Exam GENERAL: NAD, AAOx3 HEENT: Moist mucosa. Eyes open, symmetrical, & clear CARDIO: Heart RRR, no obvious murmurs PULM: No noted coughing/dyspnea, mild crackles bilaterally GI: Abdomen soft, nondistended, epigastric and right upper quadrant pain. BSx4 SKIN/MSK/EXT: Left lower extremity to metatarsal amputation, 1 toe amputated on the right lower extremity, no pain on palpation. Pedal pulses present B/L NEURO: AAOx3, no focal neuro deficits, able to move all 4 extremities Results: Labs 03/08/25 20:30 03/08/25 20:30 Labs: Short CBC 03/08/25 Range/Units 20:30 WBC 10.8 H (3.8-10.6) Thou/mm3 Hgb 14.5 (13.5-16.0) g/dL Hct 39.2 L (41.0-53.0) % Plt Count 201 (140-440) Thou/mm3 BMP 03/08/25 20:30 Sodium 139 Potassium 3.6 Chloride 100 Carbon Dioxide 27.1 BUN 23 Creatinine 1.3 Glucose 124 H Calcium 10.3 Cardiac Enzymes 03/08/25 03/08/25 Range/Units 20:30 22:18 Troponin I 0.054 H* 0.052 H* (0.0-0.045) ng/mL Liver Function 03/08/25 Range/Units 20:30 Total Bilirubin 0.4 (0.3-1.2) mg/dL AST 19 (0-34) U/L ALT 23 (10-49) U/L Alkaline Phosphatase 124 H (46-116) U/L Albumin 4.7 (3.5-5.0) gm/dL Urine 03/08/25 Range/Units 22:20 Urine Color Yellow (Lt Yel-Yel) Urine Clarity Clear (Clear/Hazy) Urine pH 6.0 (5.0-7.0) Ur Specific [place] 1.020 (1.001-1.035) Urine Protein 1+ A (Neg - Trace) Urine Glucose (UA) 4+ A (Negative) Quality Measures Quality Measures none Medications Home Medications and Allergies Home Medications ?Medication ?Instructions ?Recorded ?Confirmed ?Type aspirin 81 mg tablet,delayed 81 mg PO QDAY 06/21/20 History release duloxetine 60 mg capsule,delayed 60 mg PO QDAY 0 01/22/24 History release insulin glargine 100 unit/mL (3 80 unit subcut 1XD 01/22/24 History mL) subcutaneous pen (Basaglar KwikPen U-100 Insulin) lovastatin 40 mg tablet 40 mg PO QPM 06/21/20 History empagliflozin 10 mg tablet 10 mg PO QDAY 04/05/21 05/11/15 History (Jardiance) carvedilol 3.125 mg tablet 3.125 mg PO BID 09/04/22 History insulin lispro 100 unit/mL See Rx Instructions .Route .COMPLEX 09/04/22 01/22/24 History subcutaneous pen (Humalog KwikPen (U-100) Insulin) loratadine 10 mg tablet 10 mg PO QDAY 09/04/2201/21 History albuterol sulfate 90 mcg/actuation 90 mcg inhalation P RN PRN Adequate 01/22/24 01/22/24 History aerosol inhaler Ventilation digoxin 125 mcg (0.125 mg) tablet 125 mcg PO 1XD 01/2104/16/24 History fluticasone furoate 200 200 mcg inhalation PRN PRN 0 01/22/24 01/22/24 History mcg/actuation blister powder for Adequate Ventilation inhalation (Arnuity Ellipta) glimepiride 1 mg tablet 1 mg PO USEASDIRECTD 4 01/22/24 History ibuprofen 600 mg tablet 600 mg PO Q6HR 01/22/2411/15 History metformin 1,000 mg tablet 1,000 mg PO 2XD 01/22/2411/15 History montelukast 10 mg tablet 10 mg PO QPM 01/22/24 History nitroglycerin 0.4 mg sublingual 0.4 mg buccal [id number] PRN Chest 01/22/24 01/22/24 History tablet Pain tramadol 50 mg tablet 100 mg PO 4XD 01/22/2401/21 History Allergies Allergy/AdvReac Type Severity Reaction Status Date / Time cephalexin Allergy Severe Agitated Verified 12/04/24 10:57 promethazine Allergy Severe Agitated Verified 12/04/24 10:57 Visit Medications Acetaminophen (Acetaminophen 325 Mg Tablet) 650 mg PO Q6H PRN PRN Reason: Fever >100.5 Stop: 04/07/25 23:45 Acetaminophen (Acetaminophen 325 Mg Tablet) 1,000 mg PO Q6H PRN PRN Reason: PAIN SCALE 1-3 (mild Stop: 04/07/25 23:45 Aspirin (Aspirin Ec 81 Mg Tabec) 81 mg PO QDAY ANDRÉS Stop: 04/08/25 08:59 Atorvastatin Calcium (Atorvastatin Calcium 20 Mg Tablet) 40 mg PO HS ANDRÉS Stop: 04/08/25 20:59 Carvedilol (Carvedilol 3.125 Mg Tablet) 3.125 mg PO BIDWM ANDRÉS Stop: 04/08/25 07:59 Dextrose (Dextrose 50%-Water Inj 50 Ml Syringe) 25 ml IV Q15MIN PRN PRN Reason: BG 50-70 responsive npo pt Stop: 04/07/25 23:45 Dextrose (Dextrose 50%-Water Inj 50 Ml Syringe) 50 ml IV Q15MIN PRN PRN Reason: BG <50 OR BG <70 & pt unresponsive Stop: 04/07/25 23:45 Digoxin (Digoxin 0.125 Mg Tablet) 0.125 mg PO QDAY ANDRÉS Stop: 04/08/25 08:59 Docusate Sodium (Docusate Sod 100 Mg Capsule) 100 mg PO QDAY [facility]; Protocol Stop: 04/08/25 08:59 Glucagon (Glucagon Inj 1 Mg Vial) 1 mg IM Q15MIN PRN PRN Reason: BG <70, and no IV access Heparin Sodium (Porcine) (Heparin Sod Inj 5000 Unit/Ml Vial) 5,000 unit SC Q8HR [facility] Stop: 03/23/25 05:59 Insulin Human Lispro (Insulin Lispro (Admelog) 1 Unit/0.01 Ml Unit) 0 unit SC AC ANDRÉS; Protocol Stop: 04/08/25 07:29 Nitroglycerin (Nitroglycerin 0.4 Mg Subl Btl #25) 0.4 mg SL Q5MIN PRN PRN Reason: CHEST PAIN Last Admin: 03/08/25 22:14 Dose: 0.4 mg Ondansetron HCl (Ondansetron Inj 2 Mg/Ml Inj 2 Ml) 4 mg IV Q6H PRN; Protocol PRN Reason: NAUSEA OR VOMITING Stop: 04/07/25 23:45 Discontinued Medications Aspirin (Aspirin 325 Mg Tablet) 325 mg PO X1 ONE Stop: 03/08/25 22:01 Last Admin: 03/08/25 22:13 Dose: 325 mg Morphine Sulfate (Morphine Sulf Inj 10 Mg/Ml Vial) 4 mg IVP X1 ONE Stop: 03/08/25 21:52 Last Admin: 03/08/25 22:13 Dose: 4 mg Ondansetron HCl (Ondansetron Inj 2 Mg/Ml Inj 2 Ml) 4 mg IVP X1 ONE; Protocol Stop: 03/08/25 21:52 Last Admin: 03/08/25 22:13 Dose: 4 mg Assessment & Plan Plan 54-year-old male with past medical history as stated above who presented to the ED due to chest pain. Patient will be admitted as an observation for chest/epigastric pain. #Epigastric pain #Elevated troponins, likely demand ischemia Likely in the setting of nausea and vomiting as patient looks euvolemic and has been working outside in the sun all day. Patient's pain is described more in the epigastric region rather than the chest as well as right upper quadrant tenderness to palpation EKG shows no ST elevation but paced rhythm Troponin slightly elevated at 0.054 In the ED patient received morphine, Zofran, nitroglycerin which he states relieved the pain. 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 Trend troponins ? Follow-up liver ultrasound ? Sushil #Heart failure with reduced ejection fraction (25-30%) status post AICD Description of the chest pain seems to be atypical in nature more in the epigastric region rather than the chest EKG shows paced rhythm, troponin slightly elevated at 0.054, BNP negative Currently not in acute CHF exacerbation as patient looks clinically dry aside from some minimal crackles bilaterally but is able to lay flat on the bed ? Aspirin 81 mg daily ? Atorvastatin 40 mg ? Digoxin 125 mcg as taken at home ? Resume Coreg as taken at home ? Echo ordered ? Keep K>4, Mg>2 ? Consider resuming diuretics at a later time #Acute Kidney injury ? Avoid nephrotoxins ? Renally dose medications #Diabetes mellitus type 2 Last A1c: 5.8 (2023) ? SSI ? Hypoglycemia protocol in place Health Maintenance: Disposition: Telemetry, observation Fluids: None Feeding: Low-sodium diet Thrombo prophylaxis: Heparin Gastric Ulcer prophylaxis: Pantoprazole CODE STATUS: Full code Case discussed with my attending Dr. Connor So MD PGY-1 Disclaimer: Despite multiple revisions, due to the dictation software being used, the document bellow may not be free of grammatical errors including phonetic/typographic errors. However, this does not deter from our commitment to providing health care in the patient's best interest in mind.
[2025-03-08 23:59] VITALS: BP 137/79; PULSE 84; RESP 14; TEMP 37.4; O2SAT 100
[2025-03-09] VITALS (9 sets, daily range): BP systolic 105–134; BP diastolic 72–84; PULSE 73–89; RESP 16–18; TEMP 36.1–37; O2SAT 95–99; BMI 29.5
--- NOTE | 2025-03-09 01:00 | XR_ITS ---
Examination: Abdomen sonogram, Limited Date and time of exam: March 09, 2025 0118 hours INDICATIONS: Right upper abdominal pain nausea vomiting today Technique: Real-time aguilar scale transabdominal sonographic images of the upper abdomen obtained. Findings: Negative for gallstones Normal gallbladder wall Common bile duct 0.64 cm no stones Pancreas obscured by bowel gas Liver 14.1 cm no focal liver lesions Normal hepatopedal portal venous flow Patent IVC. IMPRESSION: Normal gallbladder. Common bile duct 0.64 cm no stones
[2025-03-09 01:02] LABS: Troponin I 0.052 ng/mL (0.0-0.045)
--- NOTE | 2025-03-09 01:26 | PC.NURSE ---
Report received from [facility].
--- NOTE | 2025-03-09 02:26 | PRELIM_ITS ---
Right upper quadrant abdominal ultrasound with Doppler and wave Doppler spectral analysis. March 09, 2025 at 0118 hours Clinical history: Rule out gallstones. Technique: Grayscale and color flow images of the right upper quadrant are provided. Hepatic and portal veins were also imaged with color flow images. Comparison: No prior study is available for comparison. Findings: The liver demonstrates increased echogenicity. No intrahepatic biliary ductal dilatation. Gallbladder is large. Distended gallbladder. No gallbladder calculus, wall thickening or pericholecystic fluid is demonstrated. The common bile duct is dilated in caliber at 6.4 mm. The pancreas is unremarkable to the extent visualized. The portal vein is patent with hepatopetal flow and normal wave Doppler spectral analysis Impression: 1. Dilated CBD, further evaluation with MRCP to assess for choledocholithiasis is recommended. 2. Distended gallbladder and gallbladder sludge, if acute cholecystitis is clinically suspected consider correlation with HIDA scan. 3. Liver steatosis. Report Electronically Signed By: Umer Laguna 03/09/2025 2:26:28 AM [EST]
[2025-03-09] MEDS: HEPARIN SOD INJ 5000 UNIT/ML VIAL SC ×2 (05:25→14:22)
[2025-03-09 06:56] LABS: Basophils % (Auto) 0 % (0-2.5); Eosinophils # (Auto) 0.1 Thou/mm3 (0.0-0.5); Eosinophils % (Auto) 2 % (0-10); Hematocrit 38.1 % (41.0-53.0); Hemoglobin 13.8 g/dL (13.5-16.0); Immature Granulocytes % (Auto) 1 % (0-0); Immature Granulocytes Auto 0.04 Thou/mm3 (0.00-0.00); Lymphocytes # (Auto) 2.9 Thou/mm3 (1.0-4.8); Lymphocytes % (Auto) 33 % (10-50); Mean Corpuscular HGB Conc 36.2 g/dl (31.0-37.0); Mean Corpuscular Hemoglobin 29.1 pg (25.0-35.0); Mean Corpuscular Volume 80 fL (80-100); Monocytes # (Auto) 0.9 Thou/mm3 (0.0-0.8); Monocytes % (Auto) 10 % (0-12); Neutrophils # (Auto) 4.9 Thou/mm3 (1.8-7.7); Neutrophils % (Auto) 55 % (37-80); Nucleated Red Blood Cell % 0 /100 WBC (0); Platelet Count 172 Thou/mm3 (140-440); RDW Standard Deviation 36.6 fL (35.1-43.9); Red Blood Count 4.74 Miln/mm3 (4.50-5.90); White Blood Count 8.8 Thou/mm3 (3.8-10.6)
[2025-03-09 07:18] LABS: Alanine Aminotransferase 20 U/L (10-49); Albumin, Serum 4.4 gm/dL (3.5-5.0); Alkaline Phosphatase 115 U/L (46-116); Anion Gap 7 (7-16); Aspartate Amino Transferase 18 U/L (0-34); BUN/Creatinine Ratio 19 Ratio (12-20); Bilirubin,Total 0.4 mg/dL (0.3-1.2); Blood Urea Nitrogen 25 mg/dL (9-23); Calcium 9.6 mg/dL (8.3-10.6); Calcium (Corrected) 9.6 mg/dL (8.5-10.1); Cardiac Risk Estimate 5.3 RATIO (4.0-6.7); Chloride 101 mMol/L (98-107); Cholesterol 143 mg/dL (132-200); Creatinine (Component) 1.3 mg/dL (0.6-1.3); Estimated Creatinine Clearance 67.1 mL/min (>60); Globulin 2.2 gm/dL (2.3-3.5); Glucose 145 mg/dL (74-106); HDL Cholesterol 27 mg/dL (40-60); LDL Cholesterol,Calculated 81 mg/dL (0-130); Osmolality,Calculated 284 (275-295); Phosphorous 4.3 mg/dL (2.4-5.1); Potassium 3.8 mMol/L (3.4-5.1); Sodium 139 mMol/L (136-145); Thyroid Stimulating Hormone 0.96 uIU/mL (0.55-4.78); Total Protein 6.6 gm/dL (5.7-8.2); Triglycerides 174 mg/dL (30-150); eGFR > 60 See Note
[2025-03-09 07:35] LABS: Glucose Estimated Average 283 mg/dL (80-131); Hemoglobin A1C 11.5 % Hgb (4.8-6.0)
[2025-03-09] MEDS: DIGOXIN 0.125 MG TABLET PO (08:53)
[2025-03-09] MEDS: DOCUSATE SOD 100 MG CAPSULE PO (08:53)
[2025-03-09] MEDS: carVEDILOL 3.125 MG TABLET PO ×2 (08:53→17:13)
[2025-03-09] MEDS: ASPIRIN EC 81 MG TABEC PO (08:53)
[2025-03-09 09:06] LABS: Troponin I 0.046 ng/mL (0.0-0.045)
--- NOTE | 2025-03-09 11:01 | ECHO_ITS ---
Transthoracic Echo Report Ht (in): 66 Wt (lb): 182 Exam Location: Echo Lab Status: Inpatient Vertical Punch Operator: Laura Stern Indications: Procedure Performed: BP: 105 / 72 HR: 78 Technical Quality: Technicallly Difficult MEASUREMENTS (Male / Female) Normal Values 2D ECHO LV Diastolic Diameter PLAX 6.2 cm 4.2 - 5.9 / 3.9 - 5.3 cm LV Systolic Diameter PLAX 5.0 cm IVS Diastolic Thickness 0.7 cm 0.6 - 1.0 / 0.6 - 0.9 cm LVPW Diastolic Thickness 0.9 cm 0.6 - 1.0 / 0.6 - 0.9 cm LV Relative Wall Thickness 0.3 LVOT Diameter 2.2 cm LA Volume Index 33.4 cm?/m? 16 - 28 cm?/m? DOPPLER AV Peak Velocity 124.0 cm/s AV Peak Gradient 6.2 mmHg LVOT Peak Velocity 80.5 cm/s LVOT Peak Gradient 2.6 mmHg AV Area Cont Eq pk 2.5 cm? MV Area PHT 3.5 cm? Mitral E Point Velocity 84.9 cm/s Mitral A Point Velocity 118.0 cm/s Mitral E to A Ratio 0.7 LV E' Lateral Velocity 3.1 cm/s Mitral E to LV E' Lateral Ratio 27.0 LV E' Septal Velocity 3.6 cm/s Mitral E to LV E' Septal Ratio 23.6 PV Peak Velocity 113.0 cm/s PV Peak Gradient 5.1 mmHg FINDINGS Left Ventricle Left ventricle is moderately dilated. Severe systolic dysfunction with severe global hypokenis. Estimated EF 25-30%. Grade I diastolic dysfunction. Right Ventricle The right ventricle is mildly dialted. RVSP not calculated due to inadequate Doppler signal. Pacer lead wire visualized in right ventricle. Left Atrium The left atrium is mildly dilated. Right Atrium The right atrium is normal by two-dimensional imaging, color flow and Doppler imaging with no structural abnormalities, no thrombus formation present. Atrial Septum The interatrial septum appears normal with no evidence of a shunt. Aorta The aorta is normal by two-dimensional, color flow and Doppler interrogation. Mitral Valve The mitral valve is normal by two-dimensional, color flow and Doppler interrogation. There is trace mitral regurgitation. Aortic Valve The aortic valve is trileaflet and normal by two-dimensional, color flow and Doppler interrogation. There is no significant aortic valve regurgitation. Tricuspid Valve The tricuspid valve is normal by two-dimensional, color flow and Doppler interrogation. There is trace tricuspid regurgitation. Pulmonic Valve The pulmonic valve is not well visualized. There is no significant pulmonic valve regurgitation. Vessels The pulmonary artery appears normal. The inferior vena cava pulmonary and hepatic veins appear normal. Pericardium The pericardium is normal by two-dimensional imaging. There is no significant pericardial effusion. CONCLUSIONS Indications: HFrEF Dilated LV. Severe global hypokensis with severe systolic dysfunction. Estimated EF 25-30%. Grade I diastolic dysfunction. RVE. LAE. Trace MR No pericardial effusion. Anam Sheth (Electronically Signed) Final Date: 10 March 2025 10:00
[2025-03-09] MEDS: INSULIN LISPRO (AdmeLOG) 1 UNIT/0.01 ML UNIT SC ×2 (11:45→17:13)
--- NOTE | 2025-03-09 14:31 | ESPR_ITS ---
<Statement entered by Lj Sanchez MD - 03/10/25 07:45> Later in the day, patient left AMA. I discussed with and supervised the web development intern physician involved in the care of this patient. Patient assessment and plan was discussed with entire medicine team, including my attending. I agree with the assessment and plan as documented by web development intern doctor. Patient care was discussed with my attending physician Dr. Henny Sanchez, PGY-2 Documentation for date of: 03/09/25 Subjective Subjective Interval history: Patient is seen and examined at the bedside Admitted overnight in view of atypical chest pain, complaining of epigastric pain worsening with intake of food Denies chest pain, radiation, endorsed that he had mild sweats Patient is currently asymptomatic Vitals are stable. Labs are significant for HbA1c 11.5 Troponins started to downtrend Patient endorsed that he was recently started on Ozempic on last Friday following which he developed all of his symptoms, likely due to side effects from Ozempic Despite of atypical chest pain and downtrending troponins, Dr. Coreas is consulted in view of extensive cardiac history Exam Vital Signs Temp Pulse Resp BP Pulse Ox O2 Del Method 97.0 F 77 16 120/74 95 Room Air 03/09/25 12:00 03/09/25 12:00 03/09/25 12:00 03/09/25 12:00 03/09/25 12:00 03/09/25 12:00 Narrative Exam General: Awake. HEENT: Normocephalic, atraumatic, mucous membranes moist. Heart: Regular rate and rhythm, no murmurs. noted AICD Lungs: Clear to auscultation with no wheezing or crackles. Abdomen: Soft, nondistended, nontender, positive bowel sounds. ?No guarding or rebound tenderness. Neurologic: Alert and oriented x3, no gross neurological deficit, and patient able to move all 4 extremities. Extremities: No edema. Skin: No rash or ecchymoses. Objective Labs 03/09/25 06:03/09/25 06:25 Labs: Laboratory Results - last 24 hr 03/08/25 03/08/25 03/08/25 20:30 22:18 22:20 WBC 10.8 H RBC 5.01 Hgb 14.5 Hct 39.2 L MCV 78 L MCH 28.9 MCHC 37.0 RDW Std Deviation 35.9 Plt Count 201 Neut % (Auto) 65 Lymph % (Auto) 24 [place] % (Auto) 8 Eos % (Auto) 1 Baso % (Auto) 1 Neut # (Auto) 7.1 Lymph # (Auto) 2.6 [place] # (Auto) 0.9 H Eos # (Auto) 0.1 Baso # (Auto) 0.1 Immature Gran # (Auto) 0.05 H Absolute Nucleated RBC 0.00 Immature Gran % 1 H Nucleated RBC % 0 D-Dimer 397 Sodium 139 Potassium 3.6 Chloride 100 Carbon Dioxide 27.1 Anion Gap 12 BUN 23 Creatinine 1.3 Estim Creat Clear Calc 68.2 eGFR > 60 BUN/Creatinine Ratio [address] Glu mg/dL Hemoglobin A1c Calculated Osmolality 282 Calcium 10.3 Corrected Calcium 10.3 H Phosphorus Magnesium 2.0 Total Bilirubin 0.4 AST 19 ALT 23 Alkaline Phosphatase 124 H Troponin I 0.054 H* 0.052 H* B-Natriuretic Peptide 30 Total Protein 7.0 Albumin 4.7 Globulin 2.3 Albumin/Globulin Ratio 2.0 Triglycerides Cholesterol LDL Cholesterol, Calc HDL Cholesterol Cholesterol/HDL Ratio TSH Ur Collection Type Clean Catch Urine Color Yellow Urine Clarity Clear Urine pH 6.0 Ur Specific [place] 1.020 Urine Protein 1+ A Urine Glucose (UA) 4+ A Urine Ketones Negative Urine Blood Negative Urine Nitrite Negative Urine Bilirubin Negative Urine Urobilinogen (Auto) Negative Ur Leukocyte Esterase Negative Urine RBC 4 H Urine WBC 1 Ur Squamous Epith Cells 0 Urine Bacteria None Hyaline Casts < 1 Urine Opiates Screen Negative Urine Fentanyl Screen Negative Ur Barbiturates Screen Negative U Amphetamin/Meth Scrn Negative U Benzodiazepines Scrn Negative U Cocaine Metab Screen Negative U Marijuana (THC) Screen Positive A 03/09/25 03/09/25 03/09/25 00:30 06:25 08:09 WBC 8.8 RBC 4.74 Hgb 13.8 Hct 38.1 L MCV 80 MCH 29.1 MCHC 36.2 RDW Std Deviation 36.6 Plt Count 172 Neut % (Auto) 55 Lymph % (Auto) 33 [place] % (Auto) 10 Eos % (Auto) 2 Baso % (Auto) 0 Neut # (Auto) 4.9 Lymph # (Auto) 2.9 [place] # (Auto) 0.9 H Eos # (Auto) 0.1 Baso # (Auto) 0.0 Immature Gran # (Auto) 0.04 H Absolute Nucleated RBC 0.00 Immature Gran % 1 H Nucleated RBC % 0 D-Dimer Sodium 139 Potassium 3.8 Chloride 101 Carbon Dioxide 31.0 Anion Gap 7 BUN 25 H Creatinine 1.3 Estim Creat Clear Calc 67.1 eGFR > 60 BUN/Creatinine Ratio [address]ucose [address] Glu mg/dL 283 H Hemoglobin A1c 11.5 H Calculated Osmolality 284 Calcium 9.6 Corrected Calcium 9.6 Phosphorus 4.3 Magnesium 2.0 Total Bilirubin 0.4 AST 18 ALT 20 Alkaline Phosphatase 115 Troponin I 0.052 H* 0.046 H* B-Natriuretic Peptide Total Protein 6.6 Albumin 4.4 Globulin 2.2 L Albumin/Globulin Ratio 2.0 Triglycerides 174 H Cholesterol 143 LDL Cholesterol, Calc 81 HDL Cholesterol 27 L Cholesterol/HDL Ratio 5.3 TSH 0.96 Ur Collection Type Urine Color Urine Clarity Urine pH Ur Specific [place] Urine Protein Urine Glucose (UA) Urine Ketones Urine Blood Urine Nitrite Urine Bilirubin Urine Urobilinogen (Auto) Ur Leukocyte Esterase Urine RBC Urine WBC Ur Squamous Epith Cells Urine Bacteria Hyaline Casts Urine Opiates Screen Urine Fentanyl Screen Ur Barbiturates Screen U Amphetamin/Meth Scrn U Benzodiazepines Scrn U Cocaine Metab Screen U Marijuana (THC) Screen Quality Measures Quality Measures none Assessment & Plan Assessment Current Active Medications: Generic Name Dose Route Start Last Admin Trade Name Freq PRN Reason Stop Dose Admin Acetaminophen 650 mg 03/08/25 23:46 Acetaminophen 325 Mg Tablet PO 04/07/25 23:45 Q6H PRN Fever >100.5 Acetaminophen 1,000 mg 03/08/25 23:46 Acetaminophen 325 Mg Tablet PO 04/07/25 23:45 Q6H PRN PAIN SCALE 1-3 (mild Aspirin 81 mg 03/09/25 09:00 03/09/25 08:53 Aspirin Ec 81 Mg Tabec PO 04/08/25 08:59 81 mg QDAY ANDRSÉ Administration Atorvastatin Calcium 40 mg 03/09/25 21:00 Atorvastatin Calcium 20 Mg Tablet PO 04/08/25 20:59 HS ANDRÉS Carvedilol 3.125 mg 03/09/25 08:00 03/09/25 08:53 Carvedilol 3.125 Mg Tablet PO 04/08/25 07:59 3.125 mg BIDWM ANDRÉS Administration Dextrose 25 ml 03/08/25 23:46 Dextrose 50%-Water Inj 50 Ml Syringe IV 04/07/25 23:45 Q15MIN PRN BG 50-70 responsive npo pt Dextrose 50 ml 03/08/25 23:46 Dextrose 50%-Water Inj 50 Ml Syringe IV 04/07/25 23:45 Q15MIN PRN BG <50 OR BG <70 & pt unresponsive Digoxin 0.125 mg 03/09/25 09:00 03/09/25 08:53 Digoxin 0.125 Mg Tablet PO 04/08/25 08:59 0.125 mg QDAY ANDRÉS Administration Docusate Sodium 100 mg 03/09/25 09:00 03/09/25 08:53 Docusate Sod 100 Mg Capsule PO 04/08/25 08:59 100 mg QDAY ANDRÉS Administration Protocol Glucagon 1 mg 03/08/25 23:46 Glucagon Inj 1 Mg Vial IM Q15MIN PRN BG <70, and no IV access Heparin Sodium (Porcine) 5,000 unit 03/09/25 06:00 03/09/25 14:22 Heparin Sod Inj 5000 Unit/Ml Vial SC 03/23/25 05:59 5,000 unit Q8HR ANDRÉS Administration Insulin Human Lispro 0 unit 03/09/25 07:30 03/09/25 11:45 Insulin Lispro (Admelog) 1 Unit/0.01 Ml Unit SC 04/08/25 07:29 2 unit AC ANDRÉS Administration Protocol Nitroglycerin 0.4 mg 03/08/25 21:59 03/08/25 22:14 Nitroglycerin 0.4 Mg Subl Btl #25 SL 0.4 mg Q5MIN PRN Administration CHEST PAIN Ondansetron HCl 4 mg 03/08/25 23:46 Ondansetron Inj 2 Mg/Ml Inj 2 Ml IV 04/07/25 23:45 Q6H PRN NAUSEA OR VOMITING Protocol Plan 54-year-old male with past medical history as stated above who presented to the ED due to chest pain. Patient will be admitted as an observation for chest/epigastric pain. #Chest and epigastric pain, likely noncardiac vs Atypical #Elevated troponins, likely demand ischemia Likely in the setting of nausea and vomiting as patient looks euvolemic and has been working outside in the sun all day. Patient's pain is described more in the epigastric region rather than the chest as well as right upper quadrant tenderness to palpation Patient notes that he was recently started on Ozempic, following which he developed the current symptoms EKG shows no ST elevation but paced rhythm Troponin slightly elevated at 0.054, later downtrended to 0.046 In the ED patient received morphine, Zofran, nitroglycerin which he states relieved the pain. 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 Coreas is consulted and will appreciate his recommendation - Echocardiogram is ordered, will follow-up with results ? Zofran as needed #Acute Kidney injury, likely prerenal - Baseline creatinine is 1 in 11/2024 - Creatinine at the time of admission is 1.3 - Likely from vomitings and poor oral intake Plan - Will continue to monitor renal functions, Lasix is held as of now ? Avoid nephrotoxins ? Renally dose medications #Heart failure with reduced ejection fraction (25-30%) status post AICD Description of the chest pain seems to be atypical in nature more in the epigastric region rather than the chest EKG shows paced rhythm, troponin slightly elevated at 0.054, BNP negative Currently not in acute CHF exacerbation as patient looks clinically euvolemic Plan ? Aspirin 81 mg daily ? Atorvastatin 40 mg ? Digoxin 125 mcg as taken at home ? Resume Coreg as taken at home ? Echo ordered ? Keep K>4, Mg>2 ? will hold lasix for now as patient clinically appears euvolemic and in the setting of mery #Diabetes mellitus type 2 Last A1c: 5.8 (2023) A1c during this admission is 11.5 Per patient, patient was recently started on insulin basal bolus regimen and Ozempic, following which he developed the current symptoms Plan ? SSI ? Hypoglycemia protocol in place - Diabetic education ordered Health Maintenance: Disposition: Telemetry, observation Fluids: None Feeding: Low-sodium diet Thrombo prophylaxis: Heparin Gastric Ulcer prophylaxis: Pantoprazole CODE STATUS: Full code Patient plan of care was discussed with the attending physician, Dr. Inman and senior resident Dr. Laura Girard, PGY1 Attending Provider Attestation/Addendum I have discussed and was present for the essential components of the history, physical examination, diagnosis, and treatment plan with the resident. I agree with the patient's care as documented by the resident and amended herein by me. Luis Inman DO. Patient seen and evaluated this AM. No acute events overnight, vital signs stable, patient afebrile, significant labs included unremarkable CBC, sodium 139, potassium 3.8, BUN 25 and creatinine 1.3. A1c was 11.5. Liver ultrasound unremarkable, chest x-ray unremarkable, U tox demonstrated marijuana on admission, troponins have been flat at 0.52. The patient has had no reoccurrence of chest pain this morning, very well may be due to Ozempic which the patient started recently however will obtain an echo and wait for additional cardiology recommendations. Patient presently on aspirin 81 mg daily, statin, Coreg 3.125 mg p.o. twice daily, digoxin 0.125 mg daily. Although this document has been carefully reviewed, there may still be some phonetic and other typographical errors. These errors are purely grammatical due to imperfections in the software program and should not be construed in any way to compromise the substance of the patient's medical care during this visit.
--- NOTE | 2025-03-09 18:54 | PD.RESEVENT ---
Documentation for date of: 03/09/25 Event Note Event Note: Patient wanted to leave AMA. I spoke to patient and family in person at bed side. Patient was pending cardio reccs and echo as last one indicated HFrEF in 20-25%. 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 Patient signed AMA form. Patient AMA was discussed with my attending Dr. Inman.
--- NOTE | 2025-03-09 19:05 | PC.NURSE ---
Patient left AMA. Patient stated I feel better now . Dr Sanchez came in to see patient and explained risks and consequences of patients leaving against medical advice. at bedside.
== END 2025-03-09 18:55 | disposition left against medical advice (07) ==
LOC: SERX 23:18 → SERHOLD 03-09 06:55 → S2NX 03-09 06:56
PROVIDERS: Physician Assistant Medical; Student in an Organized Health Care Education/Training Program; Admitting Provider Student in an Organized Health Care Education/Training Program; Emergency Provider Emergency Medicine; Visit Provider Student in an Organized Health Care Education/Training Program
DX: R07.9 Chest pain, unspecified (principal); R10.13 Epigastric pain; R79.89 Other specified abnormal findings of blood chemistry; N17.9 Acute kidney failure, unspecified; I50.22 Chronic systolic (congestive) heart failure; I11.0 Hypertensive heart disease with heart failure; F17.200 Nicotine dependence, unspecified, uncomplicated; Z79.4 Long term (current) use of insulin; F12.10 Cannabis abuse, uncomplicated; E11.9 Type 2 diabetes mellitus without complications; Z82.49 Family history of ischemic heart disease and other diseases of the circulatory system; Z95.810 Presence of automatic (implantable) cardiac defibrillator; Z79.899 Other long term (current) drug therapy; Z79.85 Long-term (current) use of injectable non-insulin antidiabetic drugs; Z79.84 Long term (current) use of oral hypoglycemic drugs; Z53.29 Procedure and treatment not carried out because of patient's decision for other reasons; Z01.810 Encounter for preprocedural cardiovascular examination
CPT/HCPCS: 36415; 71045; 76705; 80053; 80061; 80307; 81001; 83036; 83735; 83880; 84100; 84443; 84484; 85025; 85379; 87811; 93005; 93306; 96372; 96374; 96375; 99285; G0378; J1644; J1815; J2270; J2405; A9270

== ENCOUNTER → 2025-03-29 | Outpatient (CLI) | payer MEDICAID, SELFPAY ==
--- NOTE | 2025-03-29 10:21 | XR_ITS ---
Examination: Bilateral hands, 6 views. Technique: AP, Oblique, Lateral each hand total 6 views Date and time of exam: 3 5 1032 hours INDICATIONS: Bilateral hand and wrist pain beginning one year ago, fingers lockup FINDINGS: Adequate bone density Bilateral mild osteoarthritis radiocarpal and first carpometacarpal joints Minimal osteoarthritis interphalangeal joints. No erosive arthritis. No fractures Impression: Osteoarthritis as above
--- NOTE | 2025-03-29 10:21 | XR_ITS ---
Examination: Bilateral wrists 6 views TECHNIQUE: AP oblique lateral each wrist total 6 views Date and time: March 29, 2025 1035 hours INDICATIONS: Wrist pain one year. FINDINGS: Mild to moderate bilateral osteoarthritis radiocarpal and first carpometacarpal joints No fractures No foreign bodies No erosive arthritis. Negative for avascular necrosis IMPRESSION: Osteoarthritis as above
== END | disposition home or self-care (01) ==
PROVIDERS: PCP Physician Assistant
DX: M18.0 Bilateral primary osteoarthritis of first carpometacarpal joints (principal); M19.042 Primary osteoarthritis, left hand; M19.041 Primary osteoarthritis, right hand; M19.032 Primary osteoarthritis, left wrist; M19.031 Primary osteoarthritis, right wrist
CPT/HCPCS: 73110; 73130